=== PATIENT | male | born 1970 | race Caucasian/White ===

== ENCOUNTER → 2017-01-02 | Outpatient (CLI) | payer BC, OTHER ==
[~2017-01-02] MED LIST: NS 100 ML IV 100 ML IV ONE
--- NOTE | 2017-01-02 10:53 | US ---
HISTORY: Right testicular pain Study: Scrotal Ultrasound Comparison: None Technique: Multiple luevano scale and Doppler images of the right and left testicles were obtained Findings: Right: The right testis demonstrates normal echotexture. No intra parenchymal mass or infiltrative p rocess can be identified. Normal color flow Doppler is observed. The right testicle measures 4.4 x 2 .8 x 3.1 cm. There is a small right-sided hydrocele. Left: The left testis demonstrates normal echotexture. No intra parenchymal mass or infiltrative pro cess can be identified. Normal color flow Doppler is observed. The left testicle measures 3.6 x 2.3 x 3.4 cm. IMPRESSION: 1. Small right-sided hydrocele. Otherwise negative scrotal ultrasound. Reported By:
--- NOTE | 2017-01-02 10:58 | CT ---
HISTORY: Right lower quadrant pain Study: CT abdomen and pelvis with contrast Comparison: Scrotal ultrasound same day Technique: Multiple axial images of the abdomen and pelvis were obtained from the lung bases to the pubic symph ysis with IV contrast. Oral contrast was not administered. Dose reduction techniques including Auto mated Exposure Control (AEC) and adjustment of mA and kV were utilized. Findings: The visualized portions of the lung bases are unremarkable. The liver, spleen, pancreas, kidneys, a nd adrenal glands are unremarkable in their CT appearance. The gallbladder is unremarkable. There ar e bilateral nonobstructing renal calculi. The ureters are normal. No free intraperitoneal air. No evidence of intestinal obstruction or inflammation. Normal appendix. Oral contrast transits into the ascending colon. No free fluid. Normal urinary bladder. The soft tissues and osseous structures are unremarkable. The vascular structures are unremarkable. No pathologically enlarged lymph nodes are identified. IMPRESSION: 1. Bilateral nonobstructing renal calculi. 2. Otherwise unremarkable abdomen/pelvis CT. Reported By:
== END ==
LOC: RAD 09:55
PROVIDERS: ATTEND Nurse Practitioner Adult Health
DX: R10.31 Right lower quadrant pain (principal); N50.811 Right testicular pain
CPT/HCPCS: 74177; 76870; A4222